=== PATIENT | female | born 1950 | race Caucasian/White ===

== ENCOUNTER → 2020-12-26 | Outpatient (CLI) | payer OTHER ==
[~2020-12-26] MED LIST: AMBIEN 5 MG TABL5 M1 PO; AMITRIPTYLINE HCL 10 MG PO; BUDESONIDE EC3 MG PO; CALCIUM 600 +1 EAC1 PO; CENTRUM SILVER1 EAC4 PO; ENTOCORT EC 3 MG3 M1 PO; ESTRADIOL-NORE1 EAC2 PO; LORAZEPAM 0.50.5 MG PO; PERCOCET PO
== END ==
LOC: LAB 10:44
PROVIDERS: ATTEND Internal Medicine
DX: J02.9 Acute pharyngitis, unspecified (principal); Z20.822 Contact with and (suspected) exposure to COVID-19